=== PATIENT | male | born 1955 | race Caucasian/White ===

== ENCOUNTER → 2024-02-09 | Day surgery (SDC) | payer MEDICARE ==
[2024-02-08 09:39] VITALS: BMI 20.1
[~2024-02-09] MED LIST: LACTATED RINGERS 1,000 ML IV SCH; LIDOCAINE 1% INJ 10MG/ML (20 ML MDV) ONE; PROPOFOL 10 MG/ML 20 ML VIAL IV ONE
[2024-02-09 10:17] VITALS: TEMP 97.5
[2024-02-09] MEDS: IV FLUID CONTINUATION 1,000 ML IV ONE (11:12)
--- NOTE | 2024-02-09 11:43 | P.PCN ---
Date of Procedure: 02/09/24 Procedure(s) Performed: BRIEF HISTORY: Patient is a 68-year-old pleasant white male t scheduled for an elective colonoscopy as a part of screening for colon cancer/positive Cologuard. PROCEDURE PERFORMED: Colonoscopy snare polypectomy and Endo Clip placement. PREOPERATIVE DIAGNOSIS: Screening for colon cancer/positive Cologuard. IV sedation per Anesthesia. PROCEDURE: After informed consent was obtained, the patient, was brought into the endoscopy unit. IV sedation was administered by Anesthesia under continuous monitoring. Digital rectal examination was normal. Initially the Olympus CF-160 flexible video colonoscope was then inserted in the rectum, gradually advanced into the cecum without any difficulty. Careful examination was performed as the scope was gradually being withdrawn. Ileocecal valve and the appendiceal orifice were visualized and appeared normal. Prep was excellent. Mucosa of the cecum, ascending colon, transverse colon, descending colon, sigmoid colon, appeared normal. The proximal rectum at 12 cm from the anal verge there was a 3.5 cm broad-based polyp that was removed by piecemeal snare polypectomy and complete polypectomy accomplished. 2 endoclips were placed at the base of the polypectomy site to prevent post polypectomy bleed. Retroflexion was performed in the rectum and no lesions were seen. The patient tolerated the procedure well. IMPRESSION: 3.5 cm broad-based polyp in the proximal rectum at 12 cm from anal verge s/p piecemeal snare polypectomy and complete polypectomy accomplished. S/p Endo Clip placement Of the colon appeared normal. RECOMMENDATIONS: Findings of this examination were discussed with the patient as well as his family. He was advised to follow with the biopsy results. He will be seen in the office in 1 week. Based on the biopsy results we will plan on a repeat flexible sigmoidoscopy in 2 to 3 months..
[2024-02-09 12:17] VITALS: BP 132/86; PULSE 69; RESP 14
[2024-02-16 11:46] LABS: Glucose,Whole Blood 113 mg/dL (70-110)
[2024-02-16 11:46] LABS: Glucose,Whole Blood 98 mg/dL (70-110)
== END ==
LOC: ORWHC2ENDO 09:29
PROVIDERS: ATTEND Internal Medicine Gastroenterology
DX: R19.5 Other fecal abnormalities
CPT/HCPCS: 45385; 88305

== ENCOUNTER 2024-05-21 06:04 | Day surgery (SDC) | payer MEDICARE ==
[2024-05-21] MEDS ORDERED: LIDOCAINE 1% (10MG/ML) FOR IV START INTRADERMA PRN (06:14)
[2024-05-21 07:00] LABS: Glucose,Whole Blood 153 mg/dL (70-110)
[2024-05-21] MEDS: LACTATED RINGERS 1,000 ML IV SCH (07:05)
[2024-05-21] MEDS ORDERED: PROPOFOL 10 MG/ML 20 ML VIAL IV ONE (07:12)
[2024-05-21] MEDS ORDERED: LIDOCAINE 1% INJ 10MG/ML (20 ML MDV) ONE (07:12)
--- NOTE | 2024-05-21 07:28 | P.PCN ---
Date of Procedure: 05/21/24 Procedure(s) Performed: BRIEF HISTORY: Patient is a 68-year-old pleasant white male scheduled for an elective sigmoidoscopy as a part of follow-up of large rectal polyp diagnosed in January 2024. He was noted to have a 3.5 cm proximal rectal polyp that was removed completely biopsy revealed tubulovillous adenoma. He is scheduled for follow-up flexible sigmoidoscopy today. PROCEDURE PERFORMED: Flexible sigmoidoscopy with snare polypectomy PREOPERATIVE DIAGNOSIS: Follow-up large rectal polyp. IV sedation per Anesthesia. PROCEDURE: After informed consent was obtained, the patient, was brought into the endoscopy unit. IV sedation was administered by Anesthesia under continuous monitoring. Digital rectal examination was normal. Initially the Olympus CF-160 flexible video colonoscope was then inserted in the rectum, gradually advanced into the sigmoid colon, careful examination was performed. Mucosa of the sigmoid colon appeared normal. In the proximal rectum 12 cm from the anal verge there was a 6 mm residual polyp identified that was removed by snare polypectomy. Retroflexion was performed in the rectum and no lesions were seen. The patient tolerated the procedure well. IMPRESSION: 6 mm residual proximal rectal polyp status post polypectomy RECOMMENDATIONS: Findings of this examination were discussed with the patient as well as his family. He was advised to follow-up with the biopsy results and have repeat colonoscopy in 1 year..
[2024-05-21 07:36] VITALS: RESP 14
[2024-05-21 08:03] VITALS: BP 118/75; PULSE 81
[2024-05-21 08:08] LABS: Glucose,Whole Blood 101 mg/dL (70-110)
== END 2024-05-21 08:37 | disposition home or self-care (01) ==
LOC: ORWHC2ENDO 06:04
PROVIDERS: ATTEND Internal Medicine Gastroenterology
DX: D12.8 Benign neoplasm of rectum (principal); I10 Essential (primary) hypertension; E11.9 Type 2 diabetes mellitus without complications; E78.5 Hyperlipidemia, unspecified; Z85.828 Personal history of other malignant neoplasm of skin; Z79.4 Long term (current) use of insulin; Z79.84 Long term (current) use of oral hypoglycemic drugs; Z79.899 Other long term (current) drug therapy
CPT/HCPCS: 88305; 45331; J2003; J2704